=== PATIENT | female | born 2000 | race African-American/Black ===

== ENCOUNTER 2024-04-23 10:53 | Emergency (ER) | payer SELFPAY ==
[2024-04-23] MEDS ORDERED: Dexamethasone 10 MG/ML VIAL ONE (11:26)
[2024-04-23 12:20] LABS: MONO NEGATIVE CONTROL ZONE White (Negative) (White); MONO POSITIVE CONTROL Pink Line (Positive) (PINK/RED); Mononucleosis NEGATIVE (NEGATIVE)
[2024-04-23] MEDS ORDERED: Sterile Water 10 ML ONE ×2 (12:27→12:47)
[2024-04-23] MEDS ORDERED: cefTRIAXone (ROCEPHIN) 1 GM VIAL ONE ×2 (12:27→12:47)
== END 2024-04-23 12:33 | disposition home or self-care (01) ==
LOC: CSHERS 10:53
DX: J02.9 Acute pharyngitis, unspecified (principal); J45.909 Unspecified asthma, uncomplicated; Z55.0 Illiteracy and low-level literacy
CPT/HCPCS: 36415; 86308; 96372; 99284; J0696; J1100